=== PATIENT | female | born 1985 | race Caucasian/White ===

== ENCOUNTER 2019-03-03 08:23 | Outpatient (CLI) | payer BC ==
--- NOTE | 2019-03-03 09:24 | BD ---
DEXA BONE DENSITY STUDY: Date: 03/03/19 HISTORY: 33-year-old female with osteopenia. Patient has Redman syndrome. FINDINGS: Lumbar Spine: BMD (g/cm2) L1 0.805 T-Score: -1.7 L2 0.772 T-Score: -2.3 L3 0.725 T-Score: -3.3 L4 0.702 T-Score: -3.3 L1-L4 0.750 T-Score: -2.7 Left Femoral Neck: 0.577 T-Score: -2.4 Total Femur: 0.704 T-Score: -2.0 IMPRESSION: Osteoporosis. POS: [facility]
== END 2019-03-03 08:24 | disposition home or self-care (01) ==
LOC: BICMAMMO 08:23
DX: M81.0 Age-related osteoporosis without current pathological fracture (principal)
CPT/HCPCS: 77080